=== PATIENT | male | born 1940 | race Caucasian/White ===

== ENCOUNTER 2017-01-10 07:06 | Day surgery (SDC) | payer MEDICARE, BC ==
[2017-01-05 12:12] LABS: BASOPHILS 0.2 %; BASOPHILS ABSOLUTE 0.02 10/3/uL (0.0-0.16); EOSINOPHILS 2.3 %; HEMATOCRIT 39.1 % (40.0-51.0); HEMOGLOBIN 13.7 g/dL (13.6-17.8); IMMATURE GRANULOCYTES 0.2 %; IMMATURE GRANULOCYTES ABSOLUTE 0.02 10/3/uL (0.0-0.11); LYMPHOCYTES ABSOLUTE 2.72 10/3/uL (0.67-4.30); MEAN CORPUSCULAR HEMOGLOB 31.4 pg (26.0-34.0); MEAN CORPUSCULAR VOLUME 89.7 fL (80-100); MEAN PLATELET VOLUME 9.5 fL (9.2-13.0); MONOCYTES 8.5 %; MONOCYTES ABSOLUTE 0.75 10/3/uL (0.21-1.20); NEUTROPHILS 57.8 %; NEUTROPHILS ABSOLUTE 5.07 10/3/uL (2.02-8.40); PLATELET COUNT 210 10/3/uL (150-400); RBC DISTRIBUTION WIDTH 14.2 % (12.0-16.0); RED CELL COUNT 4.36 10/6/uL (4.7-6.1); WHITE BLOOD CELLS 8.8 10/3/uL (4.5-10.5)
[2017-01-05 12:13] LABS: MANUAL DIFF NO %
[2017-01-05 12:15] LABS: BUN (BLOOD UREA NITROGEN) 10 MG/DL (6-23); CALCIUM, SERUM 9.1 MG/DL (8.5-10.4); CHLORIDE, SERUM 108 MMOL/L (96-112); CO2 (CARBON DIOXIDE) 30 MMOL/L (24-34); CREATININE 0.94 MG/DL (0.70-1.30); GFR AFRICAN AMERICAN 90 ML/MIN (>=60); GFR NON AFRICAN AMERICAN 78 ML/MIN (>=60); GLUCOSE, SERUM 105 MG/DL (60-99); POTASSIUM, SERUM 3.8 MMOL/L (3.5-5.3); SODIUM, SERUM 144 MMOL/L (135-148)
[2017-01-05 13:38] LABS: ASCORBIC ACID (UR NOT ORDER) NEG (NEG); BILIRUBIN, URINE NEGATIVE (NEG); KETONE, URINE NEGATIVE (NEG); LEUKOCYTE ESTERASE(NOT OR NEG (NEG); WBC (NOT ORDERED) (RFLEX) < 1 (0-5)
--- NOTE | ~2017-01-10 | OP ---
Record Of Operation [facility] [address] [place]. [address] NAME: COURT BE : 39 STATUS : REG [facility] [place] PAT#: [id number] AGE: 76 ADM/REG DATE : 01/10/17 MR#: [id number] REPORT SERV DATE: 01/10/17 DICTATED BY: JENNIFER GRAVES DATE: 01/10/17 REPORT STATUS : Draft TRANSCRIBED BY: MODL DATE: 01/10/17 DATE OF PROCEDURE: 01/10/2017 PREOPERATIVE DIAGNOSIS: Right inguinal hernia. POSTOPERATIVE DIAGNOSIS: Right indirect inguinal hernia. PROCEDURES: Emilie to Prolene mesh right inguinal hernia repair. SURGEON: Jennifer Graves M.D. ANESTHESIA: General laryngeal mask. ESTIMATED BLOOD LOSS: Nil. FLUIDS: Crystalloid. SPECIMEN: Hernia sac. DRAINS: None. COMPLICATIONS: None. CONDITION: Good. INDICATIONS: Mr. Be is a 76-year-old with a right inguinal hernia that is painful and interfering with activity. After reviewing risks, benefits, options, and side effects, I have recommended open mesh repair. He is agreeable. PROCEDURE IN DETAIL: After being identified and marked in preop holding, he was brought to the OR and positioned supine. General laryngeal mask anesthesia was induced. Time-out was performed. Right inguinal region prepped and draped sterilely. Field block at the right anterior superior iliac spine was carried out with the 0.5% Marcaine with epinephrine and then we infiltrated in the skin and subcu parallel to the inguinal ligament at the incision path. We incised from the pubic tubercle towards the anterior superior iliac spine, opening the layers with electrocautery. Medial aspect of the incision contained nerve running in the subcutaneous layer from the region of the low rectus sheath inferior in to the right crossing the operative field. It was predominantly over the cord and did not seem to interfere with access to the external oblique aponeurosis and external ring. We infiltrated Marcaine solution deep to the external oblique and then incised the external oblique parallel to its fiber with a 15 blade scalpel and then opened it with Metzenbaum scissors. Leaflets of the external oblique were grasped with hemostat. Inguinal content was bluntly dissected down. Cardenas retractors were used to retract the external oblique laterally as well as subcu and nerve medial. Cord was looped at the level of the pubic tubercle readily. The floor of the canal was intact. There was an indirect hernia. Dissected a small amount of preperitoneal fat and then the hernia sac out of the cord. The sac was Record Of Operation [address] [place]. [address] NAME: [address] BE : 39 STATUS : REG [facility] [place] PAT#: [id number] AGE: 76 ADM/REG DATE : 01/10/17 MR#: [id number] REPORT SERV DATE: 01/10/17 DICTATED BY: JENNIFER GRAVES DATE: 01/10/17 REPORT STATUS : Draft TRANSCRIBED BY: MODL DATE: 01/10/17 empty. It was twisted, suture ligated with 3-0 Vicryl. Stump was amputated and sent as specimen. A flat sheet of Prolene mesh was brought on the field, trimmed into an oval with lateral tails in keyhole. It was positioned on the floor of the canal, anchored adjacent to the pubic tubercle along the iliopubic tract with interrupted 2-0 Ethibond. The mesh tails were overlapped, sutured to each other to recreate an internal ring. The overlapped tails were sutured to the iliopubic tract laterally. Medial sutures of the rectus sheath were placed to hold the mesh smoothly. Course of mesh avoided the nerve nicely. Now broadly infiltrated the canal floor with Marcaine solution. We repositioned the retractors and closed the external oblique with running 3-0 Vicryl. Jaron's fascia was closed with a running 3-0 Vicryl. Dermis was closed with 4-0 Monocryl, followed by Benzoin and Steri- Strips and sterile dressing. Mr. Be tolerated the surgery well. He was recovered from the anesthetic, extubated, and transported to the recovery room in good condition. DAVON/BRANDON Jennifer Graves M.D. / [id number] CC: Raine Ramos M.D.
[~2017-01-10 07:06] MED LIST: ASAB PO; CLARIT10 PO; CO Q-10100 MG PO; CO-Q-10 PO; COREG12 PO; LIPITOR40 PO; LOP25 PO; OCUFLOX OPH; PRILO PO; PROTONIX PO; VICODINTAB PO; VITAMIN B PO; VITAMIN D1000 UNI1 PO; ZESTRIL10 MG PO
[2017-02-27] MEDS ORDERED: PROTONIX PO (12:37)
== END 2017-01-10 13:30 | disposition home or self-care (01) ==
LOC: SDC 07:06
PROVIDERS: Surgery
PROC: 0YU507Z Supplement Right Inguinal Region with Autologous Tissue Substitute, Open Approach (ICD-10-PCS; principal; 2017-01-10 09:00)
DX: K40.90 Unilateral inguinal hernia, without obstruction or gangrene, not specified as recurrent (principal); F17.200 Nicotine dependence, unspecified, uncomplicated; I10 Essential (primary) hypertension; E78.5 Hyperlipidemia, unspecified; I25.10 Atherosclerotic heart disease of native coronary artery without angina pectoris; G47.33 Obstructive sleep apnea (adult) (pediatric); J44.9 Chronic obstructive pulmonary disease, unspecified; M19.90 Unspecified osteoarthritis, unspecified site
CPT/HCPCS: 71020; 80048; 81001; 85025; 88302; 93005; A9270-GY; C1781; J0690; J2405; J2710; J3010

== ENCOUNTER 2017-03-08 09:06 | Day surgery (SDC) | payer MEDICARE, BC ==
--- NOTE | ~2017-03-08 | EGD ---
EGD REPORT [facility] [address] [address] NAME: COURT BE : 39 STATUS : REG [facility]#: [id number] AGE: 76 ADM/REG DATE : 03/08/17 MR#: [id number] REPORT SERV DATE: 03/08/17 DICTATED BY: EDGAR MADRID DATE: 03/08/17 REPORT STATUS : Draft TRANSCRIBED BY: [employer] DATE: 03/08/17 [facility] Center Patient Name: Court Be Date of : 1940 Attending MD: EDGAR MADRID MD Procedure Date No Time: 03/08/2017 Procedure: Upper GI endoscopy Indications: Gastro-esophageal reflux disease, Nausea, Weight loss Referring MD: NICKIE SAUCEDO Medicines: See the Anesthesia note for documentation of the administered medications Complications: No immediate complications. Procedure: Pre-Anesthesia Assessment: - ASA Grade Assessment: III - A patient with severe systemic disease. After obtaining informed consent, the endoscope was passed under direct vision. Throughout the procedure, the patient's blood pressure, pulse, and oxygen saturations were monitored continuously. The GIF [id number] was introduced through the mouth, and advanced to the second part of duodenum. The upper GI endoscopy was accomplished without difficulty. The patient tolerated the procedure well. Findings: The examined duodenum was normal. The gastric antrum was normal. Biopsies were taken with a cold forceps for histology. Two small sessile polyps were found in the cardia (on retroflexion). Biopsies were taken with a cold forceps for histology. A small hiatus hernia was present. Impression: - Normal examined duodenum. - Normal antrum. Biopsied. - Two gastric polyps. Biopsied. - Hiatus hernia. Recommendation: - Patient has a contact number available for emergencies. The signs and symptoms of potential delayed complications were discussed with the patient. Return to normal activities tomorrow. Written discharge instructions were provided to the patient. - Regular diet. - Continue present medications. - FOR YOUR BIOPSY RESULTS: Please go to EGD REPORT [address] [address] NAME: COURT BE : 39 STATUS : REG [facility]#: [id number] AGE: 76 ADM/REG DATE : 03/08/17 MR#: [id number] REPORT SERV DATE: 03/08/17 DICTATED BY: EDGAR MADRID DATE: 03/08/17 REPORT STATUS : Draft TRANSCRIBED BY: [employer] DATE: 03/08/17 [email or web address] and register to receive your results via the portal. Your biopsy results will be posted there in about 7 to 10 days. IF you do not see result in 10 days, call office. - Return to my office in 2 months. Procedure Code(s): --- Professional --- 97551, Esophagogastroduodenoscopy, flexible, transoral; with biopsy, single or multiple Diagnosis Code(s): --- Professional --- K31.7, Polyp of stomach and duodenum K44.9, Diaphragmatic hernia without obstruction or gangrene K21.9, Gastro-esophageal reflux disease without esophagitis R11.0, Nausea R63.4, Abnormal weight loss CPT copyright 2013 [employer]. All rights reserved. The codes documented in this report are preliminary and upon wire wheeler review may be revised to meet current compliance requirements. Edgar Madrid MD EDGAR MADRID MD 03/08/2017 11:29 AM This report has been signed electronically. Number of Addenda: 0 Note Initiated On: 03/08/2017 11:13 AM Scope Withdrawal Time 0 hours 0 minutes 0 seconds [id number] [id number]
== END 2017-03-08 23:59 | disposition home or self-care (01) ==
LOC: DMU 09:06
PROVIDERS: Internal Medicine Gastroenterology
PROC: 0DB68ZX Excision of Stomach, Via Natural or Artificial Opening Endoscopic, Diagnostic (ICD-10-PCS; 2017-03-08)
PROC: 0DB68ZX Excision of Stomach, Via Natural or Artificial Opening Endoscopic, Diagnostic (ICD-10-PCS; principal; 2017-03-08 10:30)
DX: K31.7 Polyp of stomach and duodenum (principal); K44.9 Diaphragmatic hernia without obstruction or gangrene; K21.9 Gastro-esophageal reflux disease without esophagitis; G47.33 Obstructive sleep apnea (adult) (pediatric); M19.90 Unspecified osteoarthritis, unspecified site; E78.00 Pure hypercholesterolemia, unspecified; Z86.74 Personal history of sudden cardiac arrest; Z88.0 Allergy status to penicillin; Z88.5 Allergy status to narcotic agent; Z88.2 Allergy status to sulfonamides; Z91.013 Allergy to seafood; Z98.41 Cataract extraction status, right eye; Z98.42 Cataract extraction status, left eye; Z96.1 Presence of intraocular lens; Z98.890 Other specified postprocedural states
CPT/HCPCS: 88305